=== PATIENT | female | born 1995 | race Caucasian/White ===

== ENCOUNTER 2016-08-13 21:57 | Emergency (ER) | payer OTHER ==
[~2016-08-13 21:57] MED LIST: AFRIN15 M1; ALBUTEROL17 G1; ALBUTEROL17 GM INH; AMOXICILLIN PO; BIRTH CONTROL; BIRTH CONTROL PILL PO; BROMPHED DM PO; CONCERTA; DEPO-PROVER150 MG/ML INJ; DOXYCYCLINE150 MG; FLOVENT DI50 MCG/DIS IH; FLOVENT HFA12 G1; FLOVENT7.9 GM INH; IBUPROFEN800 MG PO; LIDOCAINE HC20 MG/13 MM; NAPROSYN500 MG PO; PREDNISONE PO; SINGULAIR; SINGULAIR PO; VOLTAREN75 MG PO; [UNRECOGNIZED DRUG - OTHER] MC
== END 2016-08-13 23:04 | disposition home or self-care (01) ==
LOC: SED 21:57
DX: G44.209 Tension-type headache, unspecified, not intractable (principal); F17.200 Nicotine dependence, unspecified, uncomplicated; J45.909 Unspecified asthma, uncomplicated
CPT/HCPCS: 96372; 99283; J0780; J1200; J1885

== ENCOUNTER 2016-09-14 10:12 | Emergency (ER) | payer OTHER ==
[2016-09-14 10:13] LABS: INFLUENZA A NEG (NEG); INFLUENZA B NEG (NEG)
== END 2016-09-14 10:22 | disposition home or self-care (01) ==
LOC: SED 10:12
PROVIDERS: Nurse Practitioner
DX: B34.9 Viral infection, unspecified (principal); F17.200 Nicotine dependence, unspecified, uncomplicated
CPT/HCPCS: 87651; 87804; 99283

== ENCOUNTER 2016-10-12 14:14 | Emergency (ER) | payer OTHER ==
--- NOTE | ~2016-10-12 | CR132 ---
[facility]. [facility] A Service of [facility] & [facility] RADIOLOGY TEXT RESULTS PATIENT: LORENZO NUNEZ LOCATION: SED : [birth year] UNIT #: [id number] AGE: [address]: CELINA OSBORN SEX: F ORDER DR: [id number] [place] [address] [id number] E MR#: [id number] Acc #: [id number] NAME: LORENZO NUNEZ : 1995 SEX: F STUDY DATE/TIME: 10/12/2016 15:35 UNIT: SED ROOM: STUDY DESCRIPTION: CR Forearm 2 View Lt Attending Physician: Celina Osborn Aprn Ordering Physician: Celina Osborn Aprn Primary Care Physician: Primary Care Physician No MEDICAL IMAGING REPORT This report is preliminary unless electronic signature is present. EXAM Left forearm, 2 views INDICATION Forearm pain after falling last night. No comparisons. FINDINGS There is no evidence for joint effusion fracture, dislocation or soft tissue swelling. IMPRESSION Negative. Dictated by... James Crystal M.D. THIS IS AN ELECTRONICALLY VERIFIED REPORT James Crystal M.D. at 10/13/2016 7:15 AM ESTELA/yasmine TD: 10/12/2016 23:01 JOB #: [id number] MEDICAL IMAGING REPORT Page 1 of 1
--- NOTE | ~2016-10-12 | CR156 ---
[facility]. [facility] A Service of [facility] & [facility] RADIOLOGY TEXT RESULTS PATIENT: LORENZO NUNEZ LOCATION: SED : [birth year] UNIT #: [id number] AGE: [address]: CELINA OSBORN SEX: F ORDER DR: [id number] [place] [id number] E MR#: [id number] Acc #: [id number] NAME: LORENZO NUNEZ : 1995 SEX: F STUDY DATE/TIME: 10/12/2016 15:35 UNIT: SED ROOM: STUDY DESCRIPTION: CR Humerus Min 2 View Lt Attending Physician: Celina Osborn Aprn Ordering Physician: Celina Osborn Aprn Primary Care Physician: Primary Care Physician No MEDICAL IMAGING REPORT This report is preliminary unless electronic signature is present. EXAM Left humerus 2 views INDICATION Arm pain after falling last night. No comparisons. FINDINGS There is no evidence for fracture or dislocation. IMPRESSION No evidence of fracture or dislocation Dictated by... James Crystal M.D. THIS IS AN ELECTRONICALLY VERIFIED REPORT James Crystal M.D. at 10/13/2016 7:15 AM ESTELA/yasmine TD: 10/12/2016 23:02 JOB #: [id number] MEDICAL IMAGING REPORT Page 1 of 1
--- NOTE | ~2016-10-12 | CR93 ---
[facility]. [facility] A Service of [facility] & [facility] RADIOLOGY TEXT RESULTS PATIENT: LORENZO NUNEZ LOCATION: SED : [birth year] UNIT #: [id number] AGE: [address]: CELINA OSOBRN SEX: F ORDER DR: [id number] [place] [id number] E MR#: [id number] Acc #: [id number] NAME: LORENZO NUNEZ : 1995 SEX: F STUDY DATE/TIME: 10/12/2016 14:35 UNIT: SED ROOM: STUDY DESCRIPTION: CR Elbow Min 3 Views Lt Attending Physician: Celina Osborn Aprn Ordering Physician: Celina Osborn Aprn Primary Care Physician: No Primary Care Physician MEDICAL IMAGING REPORT This report is preliminary unless electronic signature is present. EXAM Left elbow 10/12 INDICATIONS Elbow pain after falling and hitting elbow on concrete last night. FINDINGS AP and lateral examination of the elbow shows satisfactory articulation of the humerus with the proximal radius and ulna. There is no identifiable fracture, dislocation, joint effusion, or radiopaque foreign body in the soft tissues. IMPRESSION Normal elbow. Dictated by... Brian Henson Jr., M.D. THIS IS AN ELECTRONICALLY VERIFIED REPORT Brian Henson Jr., M.D. at 10/13/2016 5:53 AM BRIGHT/prabhjot TD: 10/12/2016 19:47 JOB #: [id number] MEDICAL IMAGING REPORT Page 1 of 1
== END 2016-10-12 16:42 | disposition home or self-care (01) ==
LOC: SED 14:14
DX: S50.02XA Contusion of left elbow, initial encounter (principal); J45.909 Unspecified asthma, uncomplicated; F17.210 Nicotine dependence, cigarettes, uncomplicated; W19.XXXA Unspecified fall, initial encounter
CPT/HCPCS: 29260; 73060; 73080; 73090; 96372; 99283; J1885

== ENCOUNTER 2016-11-13 11:52 | Emergency (ER) | payer OTHER ==
[2016-11-13 12:18] LABS: URINE SOURCE CLEAN CATCH
[2016-11-13 12:21] LABS: MICRO INDICATED? NO; URINE APPEARANCE CLEAR; URINE BILIRUBIN NEG (NEG); URINE BLOOD NEG (NEG); URINE COLOR YELLOW; URINE GLUCOSE NEG (NORM); URINE KETONE NEG (NEG); URINE LEUKOCYTE ESTERASE NEG (NEG); URINE NITRATE NEG (NEG); URINE PROTEIN NEG (NEG); URINE SPECIFIC GRAVITY <=1.005 (1.003-1.035); URINE UROBILINOGEN 0.2 MG/DL (NORM)
[2016-11-16 20:43] LABS: CHLAMYDIA TRACH Not Detected (Not Detected); N GONOR Not Detected (Not Detected)
== END 2016-11-13 14:05 | disposition home or self-care (01) ==
LOC: SED 11:52
PROVIDERS: Nurse Practitioner Family
DX: R10.9 Unspecified abdominal pain (principal); J45.909 Unspecified asthma, uncomplicated; F17.210 Nicotine dependence, cigarettes, uncomplicated
CPT/HCPCS: 81003; 84703; 87210; 87491; 87591; 87808; 87905; 99284